=== PATIENT | female | born 1985 | race Caucasian/White ===

== ENCOUNTER 2018-01-15 12:21 | Inpatient (IN) | payer OTHER ==
--- OUTSIDE RECORDS SUMMARY | 2018-01-15 12:23 | XMS REPORT ---
:1985 Author Organization eClinicalWorks Care Team Providers Name Role Phone Stephan Conway Provider Role Unavailable Allergies No Known Allergies Problems Problem Type Condition Code Onset Dates Condition Status Problem Elderly multigravida in second O09.522 Active trimester Problem Amenorrhea N91.2 Active Problem Encounter for supervision of other Z34.82 Active normal , second trimester Problem Encounter for supervision of other Z34.81 Active normal , first trimester Problem Disorder of thyroid, unspecified E07.9 Active Problem Endocrine, nutritional and O99.281 Active metabolic diseases complicating , first trimester Medications No Known Medications Results No Known Results Summary Purpose eClinicalWorks Submission
--- OUTSIDE RECORDS SUMMARY | 2018-01-15 12:23 | XMS REPORT ---
:1985 Author Organization e[employer]Works Care Team Providers Name Role Phone Stephan Conway Provider Role Unavailable Allergies No Known Allergies Problems Problem Type Condition Code Onset Dates Condition Status Assessment Elderly multigravida in second O09.522 Active trimester Problem Disorder of thyroid, unspecified E07.9 Active Problem Amenorrhea N91.2 Active Problem Other specified related O26.893 Active conditions, third trimester Problem Heartburn R12 Active Problem Macrocytosis without anemia D75.89 Active Problem Encounter for supervision of other Z34.81 Active normal , first trimester Problem Endocrine, nutritional and O99.281 Active metabolic diseases complicating , first trimester Problem Encounter for supervision of other Z34.82 Active normal , second trimester Problem Elderly multigravida in second O09.522 Active trimester Assessment Macrocytosis without anemia D75.89 Active Assessment Encounter for supervision of other Z34.82 Active normal , second trimester Assessment Heartburn R12 Active Assessment Disorder of thyroid, unspecified E07.9 Active Assessment Other specified related O26.893 Active conditions, third trimester Assessment Endocrine, nutritional and O99.281 Active metabolic diseases complicating , first trimester Medications Medication Code Code Instructions Start End Status Dosage System Date Date Synthroid [facility] 97128540644 125 MCG Orally Active 1 tablet Once a day on an empty stomach in the morning [facility] 16758537555 14-0.4 MG Active not Complete Orally defined Pantoprazole [facility] 51029895560 40 MG Orally Active 1 tablet Sodium Once a day as needed for heartburn Results No Known Results Summary Purpose eClinicalWorks Submission
--- OUTSIDE RECORDS SUMMARY | 2018-01-15 12:23 | XMS REPORT ---
:1985 Author Organization eClinicalWorks Care Team Providers Name Role Phone Stephan Conway Provider Role Unavailable Allergies No Known Allergies Problems Problem Type Condition Code Onset Dates Condition Status Problem Endocrine, nutritional and O99.281 Active metabolic diseases complicating , first trimester Problem Amenorrhea N91.2 Active Problem Encounter for supervision of other Z34.81 Active normal , first trimester Problem Supervision of elderly multigravida O09.523 Active in third trimester Problem Heartburn R12 Active Problem Endocrine, nutritional and O99.283 Active metabolic diseases complicating , third trimester Problem Encounter for supervision of other Z34.82 Active normal , second trimester Problem Elderly multigravida in second O09.522 Active trimester Problem Macrocytosis without anemia D75.89 Active Problem Other specified related O26.893 Active conditions, third trimester Assessment Endocrine, nutritional and O99.283 Active metabolic diseases complicating , third trimester Assessment Supervision of elderly multigravida O09.523 Active in third trimester Assessment Macrocytosis without anemia D75.89 Active Problem Disorder of thyroid, unspecified E07.9 Active Medications Medication Code Code Instructions Start End Status Dosage System Date Date [facility] 95162179304 14-0.4 MG Active not Complete Orally defined Pantoprazole [facility] 59213777677 40 MG Orally Active 1 tablet Sodium Once a day as needed for heartburn Synthroid [facility] 67340673016 150 MCG Orally Active 1 tablet Once a day on an empty stomach in the morning Results No Known Results Immunizations Vaccine Administration Date TDAP > 7 Years-Adacel Dec 23, 2017 Summary Purpose eClinicalWorks Submission
--- OUTSIDE RECORDS SUMMARY | 2018-01-15 12:23 | XMS REPORT ---
:1985 Author Organization eClinicalWorks Care Team Providers Name Role Phone ManAdiaStephan Provider Role Unavailable Allergies No Known Allergies Problems Problem Type Condition Code Onset Dates Condition Status Assessment Encounter for supervision of other Z34.82 Active normal , second trimester Assessment Endocrine, nutritional and O99.281 Active metabolic diseases complicating , first trimester Assessment Disorder of thyroid, unspecified E07.9 Active Problem Elderly multigravida in second O09.522 Active trimester Problem Amenorrhea N91.2 Active Problem Encounter for supervision of other Z34.82 Active normal , second trimester Problem Encounter for supervision of other Z34.81 Active normal , first trimester Assessment Elderly multigravida in second O09.522 Active trimester Problem Disorder of thyroid, unspecified E07.9 Active Problem Endocrine, nutritional and O99.281 Active metabolic diseases complicating , first trimester Medications Medication Code Code Instructions Start End Status Dosage System Date Date [facility] 76779982405 14-0.4 MG Orally Active not Complete defined Synthroid [facility] 31223025015 125 MCG Orally Active 1 tablet Once a day on an empty stomach in the morning Results No Known Results Summary Purpose eClinicalWorks Submission
--- OUTSIDE RECORDS SUMMARY | 2018-01-15 12:23 | XMS REPORT ---
[...] Disorder of thyroid, unspecified E07.9 Active Problem Supervision of elderly multigravida O09.523 Active in third trimester Problem Heartburn R12 Active Problem Endocrine, nutritional and O99.283 Active metabolic diseases complicating , third trimester Problem Encounter for supervision of other Z34.82 Active normal , second trimester Problem Elderly multigravida in second O09.522 Active trimester Problem Macrocytosis without anemia D75.89 Active Problem Other specified related O26.893 Active conditions, third trimester Medications No Known Medications Results No Known Results Summary Purpose [employer] User [employer]™ Submission
--- OUTSIDE RECORDS SUMMARY | 2018-01-15 12:23 | XMS REPORT ---
[...] End Status Dosage System Date Date Synthroid [facility] 20041040602 125 MCG Orally Active 1 tablet Once a day on an empty stomach in the morning [facility] 09718804442 14-0.4 MG Active not Complete Orally defined Pantoprazole [facility] [address]-35 40 MG Orally October 27, Active 1 tablet Sodium Once a day as 2018 needed for heartburn Results No Known Results Summary Purpose eClinicalWorks Submission
--- OUTSIDE RECORDS SUMMARY | 2018-01-15 12:23 | XMS REPORT ---
:1985 Author Organization eClinicalWorks Care Team Providers Name Role Phone BasilianicolejefferyStephan Provider Role Unavailable Allergies, Adverse Reactions, Alerts Substance Reaction Event Type N.K.D.A. Info Not Available Non Drug Allergy Problems Problem Type Condition Code Onset Dates Condition Status Assessment Elderly multigravida in second O09.522 Active trimester Assessment Disorder of thyroid, unspecified E07.9 Active Assessment Encounter for supervision of other Z34.82 Active normal , second trimester Problem Elderly multigravida in second O09.522 Active trimester Problem Amenorrhea N91.2 Active Problem Encounter for supervision of other Z34.82 Active normal , second trimester Problem Encounter for supervision of other Z34.81 Active normal , first trimester Assessment Endocrine, nutritional and O99.281 Active metabolic diseases complicating , first trimester Problem Disorder of thyroid, unspecified E07.9 Active Problem Endocrine, nutritional and O99.281 Active metabolic diseases complicating , first trimester Medications Medication Code Code Instructions Start End Status Dosage System Date Date [facility] 78835143374 14-0.4 MG Orally Active not Complete defined Synthroid [facility] 96889801045 125 MCG Orally Active 1 tablet Once a day on an empty stomach in the morning Results No Known Results Summary Purpose eClinicalWorks Submission
--- OUTSIDE RECORDS SUMMARY | 2018-01-15 12:23 | XMS REPORT ---
:1985 Author Organization eClinicalWorks Care Team Providers Name Role Phone Stephan Conway Provider Role Unavailable Allergies, Adverse Reactions, Alerts Substance Reaction Event Type N.K.D.A. Info Not Available Non Drug Allergy Problems Problem Type Condition Code Onset Dates Condition Status Problem Disorder of thyroid, unspecified E07.9 Active [...] multigravida in second O09.522 Active trimester Assessment Heartburn R12 Active Assessment Encounter for supervision of other Z34.82 Active normal , second trimester Assessment Disorder of thyroid, unspecified E07.9 Active Assessment Other specified related O26.893 Active conditions, third trimester Assessment Endocrine, nutritional and O99.281 Active metabolic diseases complicating , first trimester Assessment Macrocytosis without anemia D75.89 Active Assessment Elderly multigravida in second O09.522 Active trimester Medications Medication Code Code Instructions Start End Status Dosage System Date Date Pantoprazole [facility] 91094318865 40 MG Orally Active 1 tablet Sodium Once a day as needed for heartburn Synthroid [facility] 39647856324 150 MCG Orally Active 1 tablet Once a day on an empty stomach in the morning [facility] 47272030896 14-0.4 MG Active not Complete Orally defined Results No Known Results Summary Purpose eClinicalWorks Submission
--- OUTSIDE RECORDS SUMMARY | 2018-01-15 12:23 | XMS REPORT ---
[...] End Status Dosage System Date Date Synthroid [facility] 06872475480 150 MCG Orally Active 1 tablet Once a day on an empty stomach in the morning Pantoprazole [facility] 35286922823 40 MG Orally Active 1 tablet Sodium Once a day as needed for heartburn [facility] 37750309938 14-0.4 MG Active not Complete Orally defined Results No Known Results Summary Purpose eClinicalWorks Submission
--- OUTSIDE RECORDS SUMMARY | 2018-01-15 12:23 | XMS REPORT ---
[...] Start End Status Dosage System Date Date [facility] 32205218532 14-0.4 MG Active not Complete Orally defined Synthroid [facility] 44712519963 150 MCG Orally November 24, Active 1 tablet Once a day 2017 on an empty stomach in the morning Synthroid [facility] 71038238591 125 MCG Orally Inactive 1 tablet Once a day on an empty stomach in the morning Pantoprazole [facility] 78243252740 40 MG Orally Active 1 tablet Sodium Once a day as needed for heartburn Results No Known Results Summary Purpose eClinicalWorks Submission
--- OUTSIDE RECORDS SUMMARY | 2018-01-15 12:24 | XMS REPORT ---
[...] Start End Status Dosage System Date Date [facility] 20378146888 14-0.4 MG Active not Complete Orally defined Pantoprazole [facility] 35906591913 40 MG Orally Active 1 tablet Sodium Once a day as needed for heartburn Synthroid [facility] 88894404649 150 MCG Orally Active 1 tablet Once a day on an empty stomach in the morning Results No Known Results Summary Purpose eClinicalWorks Submission
--- OUTSIDE RECORDS SUMMARY | 2018-01-15 12:24 | XMS REPORT ---
[...] End Status Dosage System Date Date Pantoprazole [facility] 79244676865 40 MG Orally Active 1 tablet Sodium Once a day as needed for heartburn [facility] 01692906273 14-0.4 MG Active not Complete Orally defined Synthroid [facility] 81825889334 150 MCG Orally Active 1 tablet Once a day on an empty stomach in the morning Results No Known Results Summary Purpose eClinicalWorks Submission
--- OUTSIDE RECORDS SUMMARY | 2018-01-15 12:24 | XMS REPORT ---
[...] End Status Dosage System Date Date Pantoprazole [facility] 24860812965 40 MG Orally Active 1 tablet Sodium Once a day as needed for heartburn Synthroid [facility] 79999074604 150 MCG Orally Active 1 tablet Once a day on an empty stomach in the morning [facility] 02383737270 14-0.4 MG Active not Complete Orally defined Results No Known Results Summary Purpose eClinicalWorks Submission
[2018-01-15] MEDS ORDERED: Ringers Lactate 1,000 ML IV PRN (12:59)
[2018-01-15] MEDS ORDERED: BUTORPHANOL 1 MG/ML INJ IV PRN (12:59)
[2018-01-15] MEDS ORDERED: PROMETHAZINE 25 MG/ML VIAL IM PRN (12:59)
[2018-01-15] MEDS ORDERED: OXYTOCIN/LR 20 UNIT/1,000 ML BAG IV SCH (13:00)
[2018-01-15] MEDS ORDERED: Ringers Lactate 1,000 ML IV SCH (13:00)
[2018-01-15 13:09] VITALS: BMI 29.3
[2018-01-15 13:09] LABS: Absolute Neutrophil 7.1 K/uL (1.8-8.0); Basophils % 0.6 % (0-1.3); Eosinophils % 0.6 % (0-4.4); Lymphocytes % 19.9 % (15.3-44.8); MCH 34.6 pg (27.0-35.0); MCV 100.5 fL (80-100); MPV 9.7 fL (7.6-11.3); Monocytes % 9.4 % (3.3-12.3); RBC Red Blood Cell Count 3.78 M/uL (3.86-4.86)
[2018-01-15 13:09] LABS: RPR Titer ND
[2018-01-15] MEDS ORDERED: NA CIT/CITRIC AC 30 ML ORAL UDC PO ONE (16:00)
[2018-01-15] MEDS ORDERED: FAMOTIDINE 20 MG TAB PO ONE (16:00)
[2018-01-15] MEDS ORDERED: METOCLOPRAMIDE 10 MG/2mL INJ IV SCH (16:00)
[2018-01-15] MEDS ORDERED: CEFAZOLIN/SWI 2gm 2 GM/20 ML SYR IVP SCH (16:00)
[2018-01-15] MEDS ORDERED: FAMOTIDINE 20 MG/2 ML VIAL IV SCH (16:00)
[2018-01-15] MEDS ORDERED: METHYLERGONOVINE 0.2MG/ML AMP IM ONE (16:07)
[2018-01-15] MEDS ORDERED: CARBOPROST TROME 250 MCG/ML IM ONE (16:07)
[2018-01-15] MEDS ORDERED: MORPHINE SULFATE/PF 1 MG/ML (10 ML AMP) ONE (16:15)
[2018-01-15] MEDS ORDERED: BUPIVACAINE 0.75% (PF) 2 ML SP ONE (16:15)
[2018-01-15] MEDS ORDERED: OXYTOCIN 10 UNIT/ML ML IV ONE ×2 (16:26→16:27)
[2018-01-15] MEDS ORDERED: MEPERIDINE HCL 25 MG/0.5 ML ONE (16:53)
[2018-01-15] MEDS ORDERED: Oxycodone HCl/Acetaminophen 1 TAB TAB PO PRN (17:04)
[2018-01-15] MEDS ORDERED: CARBOPROST TROME 250 MCG/ML IM PRN (17:04)
--- NOTE | 2018-01-15 17:07 | P.BOP ---
Preoperative diagnosis: 38+ week , placental abruption Postoperative diagnosis: Same, viable female infant Primary procedure: Estimated blood loss: 1000ml Specimen: placenta Anesthesia: Spinal Drain(s): Urinary catheter Transferred to: Other (276) Condition: Good
--- NOTE | 2018-01-15 17:53 | PREOPHP ---
Date of Admission: 01/15/2018 History Of Present Illness: Ms. Flores is 33-year-old female, G3, P2002, approximately at 38+ weeks gestation. She has been followed by Dr. Conway without significant problems other than advanced maternal age and slight elevation in blood pressure recently. She was going to lunch, noticed a gush of fluid, thought her membranes were ruptured, but it was blood. She presents to Labor and Delivery for evaluation. Past Medical History: Please see record. Family History: Please see record. Review of Systems: She reports no recent cough, cold, fever, or chills. No recent nausea or vomiting. has been active. She has had no other bleeding during this . She denies any urine symptoms, bowel or bladder issues. She has had ultrasound recently showed no evidence of placenta previa. Level 2 ultrasounds previously because of advanced maternal age, which showed no evidence of Vasa previa. has been otherwise active. Physical Examination: General: Reveals female, in no apparent distress. Neck: Supple without adenopathy or thyromegaly. Lungs: Clear. Cardiac: Regular rate and rhythm without murmurs. Abdomen: Nontender. Consistent with term size . Pelvic Exam: Cervix noted to be 1+ cm dilated, 50% effaced, vertex presentation , moderate amount of thin blood noted. Extremities: No cyanosis, clubbing, or edema. Impression: A 38+ week , vaginal bleeding, suspected rupture of membranes. Plan: The patient is having some contractions. accelerations are noted with no evidence of periodic decelerations. There was not a hyperstimulatory state and the patient does not complain of any significant pain, so doubt this is an evidence of significant abruption. Placenta previa and Vasa previa have been ruled out previously. We will plan on induction of labor and delivery with of progression to section if excessive bleeding or intolerance of labor ensues. LISANDRO/AIYANA Voice ID: [id number] MTDPrachi
[2018-01-15] MEDS ORDERED: Ringers Lactate 2,000 ML IV ONE (17:57)
[2018-01-15] MEDS: ONDANSETRON 4 MG (ODT) TAB PO PRN (19:15)
[2018-01-15] MEDS: Oxycodone HCl/Acetaminophen 1 TAB TAB PO PRN ×2 (19:30→23:35)
[2018-01-15] MEDS: KETOROLAC 30 MG/ML INJ IV PRN (21:30)
[2018-01-16] MEDS: OXYTOCIN/LR 20 UNIT/1,000 ML BAG IV SCH ×2 (02:00→10:00)
[2018-01-16] MEDS: KETOROLAC 30 MG/ML INJ IV PRN ×2 (05:25→14:00)
[2018-01-16 05:42] LABS: Absolute Monocytes 1.3 K/uL (0.1-1.3); Absolute Neutrophil 9.8 K/uL (1.8-8.0); Basophils % 0.3 % (0-1.3); Eosinophils % 0.1 % (0-4.4); Hematocrit 25.1 % (36.0-45.0); Lymphocytes % 15.1 % (15.3-44.8); MCH 35.5 pg (27.0-35.0); MCV 100.6 fL (80-100); MPV 8.6 fL (7.6-11.3); Monocytes % 9.6 % (3.3-12.3); RBC Red Blood Cell Count 2.49 M/uL (3.86-4.86)
--- NOTE | 2018-01-16 07:19 | P.PN ---
Date of Service: 01/16/18 S-No complaints, still comfortable O-Afeb, vs stable, bandage dry, abdomen not distended, 01/16 post op h/h A-Post op anemia secondary to abruption P-continue Synthroid, precautions concerning ambulation, advance diet, activity as able
[2018-01-16] MEDS: ONDANSETRON 4 MG (ODT) TAB PO PRN (08:53)
[2018-01-16] MEDS: SYNTHROID 150 MCG PO SCH (09:00)
[2018-01-16] MEDS ORDERED: LEVOTHYROXINE SOD 0.075 MG TAB PO SCH (09:00)
[2018-01-16] MEDS: Oxycodone HCl/Acetaminophen 1 TAB TAB PO PRN ×3 (10:09→22:05)
[2018-01-16] MEDS: IBUPROFEN 400 MG TAB PO PRN (20:10)
[2018-01-16] MEDS ORDERED: IBUPROFEN 200 MG TAB PO ONE (20:12)
[2018-01-17] MEDS: Oxycodone HCl/Acetaminophen 1 TAB TAB PO PRN ×4 (03:55→20:40)
[2018-01-17] MEDS: SYNTHROID 150 MCG PO SCH (06:30)
[2018-01-17] MEDS: IBUPROFEN 400 MG TAB PO PRN (06:38)
[2018-01-17] MEDS ORDERED: IBUPROFEN 200 MG TAB PO ONE (06:41)
[2018-01-17 07:40] LABS: Absolute Lymphocytes (CBC) 1.5 K/uL (0.7-4.9); Absolute Monocytes 0.7 K/uL (0.1-1.3); Absolute Neutrophil 8.2 K/uL (1.8-8.0); Basophils % 0.3 % (0-1.3); Eosinophils % 0.6 % (0-4.4); Hematocrit 26.3 % (36.0-45.0); Lymphocytes % 14.1 % (15.3-44.8); MCH 35.3 pg (27.0-35.0); MCV 100.4 fL (80-100); MPV 8.1 fL (7.6-11.3); Monocytes % 6.3 % (3.3-12.3); RBC Red Blood Cell Count 2.61 M/uL (3.86-4.86)
[2018-01-17] MEDS: IBUPROFEN 200 MG TAB PO PRN ×2 (12:28→18:33)
[2018-01-17 19:17] LABS: RPR (Rapid Plasma Reagin) NON-REACT (NON-REACT)
[2018-01-18] MEDS: IBUPROFEN 200 MG TAB PO PRN ×2 (00:40→06:35)
[2018-01-18] MEDS: Oxycodone HCl/Acetaminophen 1 TAB TAB PO PRN ×2 (02:40→08:00)
[2018-01-18 03:27] LABS: HBsAG Nonreactive (Nonreactive)
[2018-01-18] MEDS: SYNTHROID 150 MCG PO SCH (06:30)
[2018-01-18] MEDS ORDERED: IBUPROFEN 400 MG TAB ONE (06:37)
[2018-01-18 08:21] VITALS: TEMP 97.6
[2018-01-18 08:55] VITALS: BP 143/80
--- NOTE | 2018-01-18 08:56 | OP ---
Surgeon: Mc Duarte MD Railroad Signal Technician: Railroad Signal Technician Surgeon: Darion Christian MD. Anesthesiologist: Dr. Mckeon. Preoperative Diagnosis: 38+ weeks , placental abruption. Procedure: Spinal block anesthesia, primary section delivery of viable female . Postoperative Diagnosis: 38+ weeks , placental abruption. Description Of Procedure: After the patient received 2 g of Ancef for antibiotic prophylaxis and Fol ey catheter placed and adequate spinal anesthesia was obtained, the patient was prepped and draped in the usual fashion for abdominal surgery. A Pfannenstiel skin incision was made, carried down to the fascia. The fascia was incised with a combination of sharp and blunt dissection. This was separate d from the underlying rectus muscles. These were divided in the midline. The peritoneum was incised . Vesicouterine peritoneum incised, and bladder flap developed bluntly. A low transverse uterine in cision was made. A 5 pounds 9 ounce female infant, 9 and 9 was delivered. The umbilical cord was milked toward the infant. The cord was clamped, cut, and the infant placed in a warmer to be att ended to by Dr. Wolfe. Cord blood was obtained. The placenta was manually removed. The uteru s was exteriorized. At time of the removal, large blood clot was noted in the uterus. The uterus wa s closed with a running nonlocking suture x2 with second layer was used to imbricate the first with 0 Vicryl. The vesicouterine peritoneum/bladder flap was reapproximated with running suture of 3-0 Aravind ryl. The uterus was returned to the peritoneal cavity, which was cleaned off amniotic fluid, debris, and blood clot. The peritoneum was closed by approximating the rectus muscles in the midline with s imple sutures of 0 Vicryl. The fascia was closed with a running suture of #1 Vicryl from either negrita in to the middle. Subcutaneous tissue was closed with simple sutures of 3-0 Vicryl, subdermal suture of 3-0 Vicryl, and the skin closed with a running subcuticular suture of 4-0 Monocryl. Sterile dres sing was applied. The patient was taken to the recovery room in satisfactory condition with Farnsworth ca theter in place and sponge and needle counts were correct x2. LISANDRO/RICKEYL Voice ID: [id number] Report ID: [id number]
--- NOTE | 2018-01-19 06:00 | DS ---
Date of Discharge: 01/18/2018 DISMISSAL SUMMARY Final Hospital Discharge Diagnosis: A 38 plus week , placental abruption, delivery by alba donato section, advanced maternal age. Complications: Placental abruption, postoperative anemia, blood loss anemia. Procedures: Spinal block anesthesia, primary section, delivery of viable female . Hospital Course: The patient is a 33-year-old female, 3, para 2-0-0-2 at 38 plus w eeks gestation, presenting with vaginal bleeding. Marginal abruption was noted after initial observa tion. Bleeding increased and infant started showing signs of nonreassuring heart rate. Becaus fantasma of this, she was taking a primary section where abruption was confirmed. She was dismisse d on the third day, ambulatory, on a select diet with routine post section, activ ity restrictions to be seen back my office in approximately 4 days for blood pressure check and incis ion check. She had an admission hemoglobin and hematocrit of 13.1 to 38.0, dismissal of 9.2 and 26.3 . She is Rh positive blood type, rubella immune. She was dismissed with prescription for Tylenol No . 3, #15 for pain relief with the usual postcesarean section activity restrictions. LISANDRO/AIYANA Voice ID: [id number] Report ID: [id number]
[2018-01-22] MEDS ORDERED: IBUPROFEN 200 MG TAB PO PRN (00:01)
== END 2018-01-18 09:15 | disposition home or self-care (01) | DRG 765 ==
LOC: L&D 12:21 → 2ND-WC 12:53
PROVIDERS: ADMIT Specialist; ATTEND Specialist
PROC: 10D00Z1 Extraction of Products of Conception, Low, Open Approach (ICD-10-PCS; principal; 2018-01-15 15:45)
DX: O45.93 Premature separation of placenta, unspecified, third trimester (principal); D62 Acute posthemorrhagic anemia; O90.81 Anemia of the puerperium; O76 Abnormality in fetal heart rate and rhythm complicating labor and delivery; O99.284 Endocrine, nutritional and metabolic diseases complicating childbirth; E03.9 Hypothyroidism, unspecified; Z3A.38 38 weeks gestation of pregnancy; Z37.0 Single live birth
CPT/HCPCS: 36415; 85025; 86592; 86850; 86900; 86901; 87340; 88307; J0690; J2175; J2210; J2590; J2765